=== PATIENT | female | born 1950 | race African-American/Black ===

== ENCOUNTER 2018-05-20 13:28 | Emergency (ER) | payer MEDICARE, MEDICAID ==
--- NOTE | 2018-05-20 14:22 | ER Document Report ---
ED Medical Screen (RME) - General Chief Complaint: High Blood Pressure Stated Complaint: BLOOD PRESSURE ISSUES Time Seen by Provider: 05/20/18 14:08 Notes: RAPID MEDICAL EVALUATION DISCLOSURE I have seen this patient as part of a Rapid Medical Evaluation and, if applicable, placed any initially appropriate orders. The patient will be seen and fully evaluated, including a full history and physical exam, by a provider ( in Main ED or Fast Track) when a room becomes available. 67-year-old female PMH hypertension here with complaints of bilateral arm pain headache chest pain shortness of breath that started 2 days ago. She states that she has the symptoms where her blood pressure gets really high. She does not know what her baseline blood pressures normally run. She has not missed any doses of her blood pressure medication. She has not had any changes in the dosing of her blood pressure medications recently. EXAM CTAB RRR TRAVEL OUTSIDE OF THE [place] IN LAST 30 DAYS: No - Related Data Allergies/Adverse Reactions: No Known Allergies Allergy (Verified 05/20/18 13:29) Past Medical History - Social History Chew tobacco use (# tins/day): Yes - dip Frequency of alcohol use: Social Drug Abuse: None - Past Medical History Cardiac Medical History: Reports: Hx Hypertension Renal/ Medical History: Denies: Hx Peritoneal Dialysis Musculoskeltal Medical History: Reports Hx Arthritis Past Surgical History: Reports: Hx Abdominal Surgery - fibroid tumor in stomach , Hx Hysterectomy - Immunizations Hx Diphtheria, Pertussis, Tetanus Vaccination: Yes Physical Exam - Vital signs Vitals: Temp Pulse Resp BP Pulse Ox 98.5 F 55 L 16 182/73 H 95 05/20/18 13:39 05/20/18 13:39 05/20/18 13:39 05/20/18 13:39 05/20/18 13:39 Course - Vital Signs Vital signs: Temp Pulse Resp BP Pulse Ox 98.5 F 55 L 16 182/73 H 95 05/20/18 13:39 05/20/18 13:39 05/20/18 13:39 05/20/18 13:39 05/20/18 13:39 Doctor's Discharge - Discharge Referrals: HEATHER MURRAY PA-C [Primary Care Provider] - Follow up as needed
[2018-05-20 14:59] LABS: ABSOLUTE EOSINOPHILS # (AUTO) 0.1 10^3/uL (0.0-0.6); ABSOLUTE LYMPHOCYTES (AUTO) 1.9 10^3/uL (0.5-4.7); ABSOLUTE MONOCYTES (AUTO) 0.7 10^3/uL (0.1-1.4); ABSOLUTE NEUT (AUTO) 6.7 10^3/uL (1.7-8.2); BASOPHILS % (AUTO) 0.5 % (0-2); EOSINOPHILS % (AUTO) 1.4 % (0-6); HEMOGLOBIN 13.5 g/dL (12.0-15.5); LYMPHOCYTES % (AUTO) 20.2 % (13-45); MEAN CORPUSCULAR HEMOGLOBIN 30.1 pg (27.0-33.4); MEAN CORPUSCULAR HGB CONC 33.8 g/dL (32.0-36.0); MEAN CORPUSCULAR VOLUME 89 fl (80-97); MONOCYTES % (AUTO) 7.4 % (3-13); PLATELET COUNT 269 10^3/uL (150-450); RED BLOOD COUNT 4.49 10^6/uL (3.72-5.28); RED CELL DISTRIBUTION WIDTH 14.3 % (11.5-14.0); SEGMENTED NEUTROPHILS % (AUTO) 70.5 % (42-78); TOTAL CELLS COUNTED % (AUTO) 100 %; WHITE BLOOD COUNT 9.5 10^3/uL (4.0-10.5)
--- NOTE | 2018-05-20 15:07 | RADIOLOGY REPORT (SQ) ---
EXAM DESCRIPTION: CHEST 2 VIEWS COMPLETED DATE/TIME: 05/20/2018 2:53 pm REASON FOR STUDY: CP SOB COMPARISON: AP chest 12/24/2011 EXAM PARAMETERS: NUMBER OF VIEWS: two views TECHNIQUE: Digital Frontal and Lateral radiographic views of the chest acquired. RADIATION DOSE: NA LIMITATIONS: none FINDINGS: LUNGS AND PLEURA: No opacities, masses or pneumothorax. No pleural effusion. MEDIASTINUM AND HILAR STRUCTURES: No masses or contour abnormalities. HEART AND VASCULAR STRUCTURES: Stable mild cardiomegaly BONES: No acute findings. HARDWARE: None in the chest. OTHER: No other significant finding. IMPRESSION: NO ACUTE RADIOGRAPHIC FINDING IN THE CHEST. TECHNICAL DOCUMENTATION: JOB ID: [id number] [employer]- All Rights Reserved Reading location - IP/workstation name: [email or web address]
[2018-05-20 15:16] LABS: ALANINE AMINOTRANSFERASE 19 U/L (9-52); ALBUMIN 4.3 g/dL (3.5-5.0); ALKALINE PHOSPHATASE 89 U/L (38-126); ANION GAP 13 (5-19); ASPARTATE AMINO TRANSFERASE 23 U/L (14-36); BILIRUBIN,DIRECT 0.7 mg/dL (0.0-0.4); BLOOD UREA NITROGEN 12 mg/dL (7-20); CALCIUM 9.9 mg/dL (8.4-10.2); CARBON DIOXIDE 30 mmol/L (22-30); CHLORIDE 103 mmol/L (98-107); GLUCOSE 94 mg/dL (75-110); POTASSIUM 3.8 mmol/L (3.6-5.0); SODIUM 145.5 mmol/L (137-145); TOTAL PROTEIN 7.3 g/dL (6.3-8.2)
--- NOTE | 2018-05-20 16:29 | ER Document Report ---
ED Blood Pressure Problem - General Mode of Arrival: Ambulatory Information source: Patient TRAVEL OUTSIDE OF THE [place] IN LAST 30 DAYS: No <ZITA GARCIA - Last Filed: 05/20/18 16:33> <ALEXANDRIA MOTT - Last Filed: 05/20/18 21:35> - General Chief Complaint: High Blood Pressure Stated Complaint: BLOOD PRESSURE ISSUES Time Seen by Provider: 05/20/18 14:08 Notes: 67 y.o female with gout, arthritis and HTN presents to the ED with high blood pressure at home and a NICHOLSON to the top of her head since Saturday05/17/18. Pt also complains of CP and bilateral arm pain after sleeping, both of which have been present for the past 2 days. Pt reports that she has been taking her BP medication as prescribed without missing any days nor has she had any recent changes in her medication dosage, but she states that these sx are similar to when she has had high blood pressure. (ZITA GARCIA) - Related Data Allergies/Adverse Reactions: No Known Allergies Allergy (Verified 05/20/18 13:29) Past Medical History - General Information source: Patient - Social History Smoking Status: Never Smoker Chew tobacco use (# tins/day): Yes - dip Frequency of alcohol use: Social Drug Abuse: None Family History: Other - Patient does not know her family history as she is adopted Patient has suicidal ideation: No Patient has homicidal ideation: No - Past Medical History Cardiac Medical History: Reports: Hx Hypertension Renal/ Medical History: Denies: Hx Peritoneal Dialysis Musculoskeltal Medical History: Reports Hx Arthritis, Reports Hx Gout Past Surgical History: Reports: Hx Abdominal Surgery - fibroid tumor in stomach , Hx Hysterectomy - Immunizations Hx Diphtheria, Pertussis, Tetanus Vaccination: Yes <ZITA GARCIA - Last Filed: 05/20/18 16:33> Review of Systems - Review of Systems Constitutional: No symptoms reported EENT: No symptoms reported Cardiovascular: See HPI, Chest pain Respiratory: No symptoms reported Gastrointestinal: No symptoms reported Genitourinary: No symptoms reported Female Genitourinary: No symptoms reported Musculoskeletal: See HPI, Other - Bilateral upper extremity pain Skin: No symptoms reported Hematologic/Lymphatic: No symptoms reported Neurological/Psychological: See HPI, Headaches -: Yes All other systems reviewed and negative <ZITA GARCIA - Last Filed: 05/20/18 16:33> - Vital signs Vitals: Temp Pulse Resp BP Pulse Ox 98.5 F 55 L 16 182/73 H 95 05/20/18 13:39 05/20/18 13:39 05/20/18 13:39 05/20/18 13:39 05/20/18 13:39 - Notes Notes: Physical Exam: General: Alert, appears well. HEENT: Normocephalic. Atraumatic. PERRL. Extraocular movements intact. Oropharynx clear. Neck: Supple. Cervical muscles are tender to palpation. Respiratory: No respiratory distress. Clear and equal breath sounds bilaterally. Cardiovascular: Regular rate and rhythm. Chest wall tenderness to palpation. Abdominal: Normal Inspection. Non-tender. No distension. Normal Bowel Sounds. Back: Non-tender. No deformity or step off. Extremities: Moves all four extremities. Upper extremities: Trapezium tender to palpation. Normal ROM. Lower extremities: Normal inspection. No edema. Normal ROM. Neurological: Normal cognition. AAOx3. Normal speech. Psychological: Normal affect. Normal Mood. Skin: Warm. Dry. Normal color. (ZITA GARCIA) Course - Laboratory Result Diagrams: 05/20/18 14:38 05/20/18 14:38 <ZITA GARCIA - Last Filed: 05/20/18 16:33> - Laboratory Result Diagrams: 05/20/18 14:38 05/20/18 14:38 <ALEXANDRIA MOTT - Last Filed: 05/20/18 21:35> - Re-evaluation Re-evalutation: 05/20/18 21:26 The blood pressure went over 200 systolic. Patient was given 20 mg hydralazine IV. Blood pressure did come down for a short while, and then began climbing back up and is most recently about 187 systolic. Patient does admit that she really does not check her blood pressure at home, until today when she is having her chest discomfort. The patient's EKG does not show acute changes, serial troponins are undetectable. The patient's chest pain is reproducible on exam. She will be given an oral dose of hydralazine 50 mg and discharged home with antibiotics for her right otitis media. She will be encouraged to follow with her primary care provider tomorrow to discuss better blood pressure management and further evaluation of her chest discomfort (ALEXANDRIA MOTT) - Vital Signs Vital signs: Temp Pulse Resp BP Pulse Ox 98.5 F 55 L 23 H 150/71 H 100 05/20/18 13:39 05/20/18 13:39 05/20/18 20:17 05/20/18 20:17 05/20/18 20:17 - Laboratory Laboratory results interpreted by me: 05/20/18 05/20/18 14:38 14:38 RDW 14.3 H Sodium 145.5 H Direct Bilirubin 0.7 H Discharge <ZITA GARCIA - Last Filed: 05/20/18 16:33> <ALEXANDRIA MOTT - Last Filed: 05/20/18 21:35> - Discharge Clinical Impression: Poorly-controlled hypertension, Chest wall pain Right otitis media Qualifiers: Otitis media type: unspecified Qualified Code(s): H66.91 - Otitis media, unspecified, right ear Headache Qualifiers: Headache type: tension-type Headache chronicity pattern: acute headache Intractability: not intractable Qualified Code(s): G44.209 - Tension-type headache, unspecified, not intractable Condition: Stable Disposition: HOME, SELF-CARE Additional Instructions: Take medications as prescribed for your right ear infection. Take Tylenol and ibuprofen for your headaches and chest wall pain. Be sure not to miss any doses of your blood pressure medication. Check your blood pressure 3-4 times daily and keep a log of the times and the pressures. Follow-up with your primary care provider in 1-2 days to review your blood pressures and adjust medication if needed. RETURN TO THE EMERGENCY ROOM IF ANY NEW OR WORSENING SYMPTOMS. Prescriptions: Amoxicillin Trihydrate [Amoxil 500 mg Capsule] 500 mg PO TID #30 cap Referrals: HEATHER MURRAY PA-C [Primary Care Provider] - Follow up as needed Scribe Attestation: 05/20/18 16:54 I personally performed the services described in the documentation, reviewed and edited the documentation which was dictated to the scribe in my presence, and it accurately records my words and actions. (ALEXANDRIA MOTT) Scribe Documentation - Scribe Written by Cris:: Cris Shi 05/20/18 [id number] acting as scribe for :: Hemalatha <ZITA GARCIA - Last Filed: 05/20/18 16:33>
[2018-05-20] MEDS ORDERED: HYDRALAZINE HCL INJ/PF 20 MG/1 ML SDV IV ONE (18:20)
--- NOTE | 2018-05-20 19:44 | EKG REPORT ---
SEVERITY:- ABNORMAL ECG - SINUS RHYTHM ATRIAL PREMATURE COMPLEX LEFT VENTRICULAR HYPERTROPHY BORDERLINE T ABNORMALITIES, INFERIOR LEADS BORDERLINE PROLONGED QT INTERVAL : Confirmed by: Deborah Radford MD 20-May-2018 19:43:28
[2018-05-20] MEDS ORDERED: HYDRALAZINE HCL 50 MG TABLET PO ONE (21:28)
[2018-05-20] MEDS ORDERED: AMOXICILLIN TRIHYDRATE 500 MG CAPSULE PO ONE (21:36)
[2018-05-20 22:42] VITALS: BP 149/70
== END 2018-05-20 22:00 | disposition home or self-care (01) ==
LOC: ER 13:28
DX: I10 Essential (primary) hypertension (principal); R07.9 Chest pain, unspecified; R51 Headache; Z90.710 Acquired absence of both cervix and uterus
CPT/HCPCS: 93005; 99284; 96374; 36415; 85025; 80053; 84484; 71046; 93010; A9270 ×2; J0360

== ENCOUNTER 2018-12-29 08:50 | Day surgery (SDC) | payer MEDICARE, MEDICAID ==
[~2018-12-29 08:50] MED LIST: PROPOFOL INJ 200 MG/20 ML VIAL IV ONE
[2018-12-29 10:43] VITALS: BP 184/96
--- NOTE | 2018-12-29 13:03 | Operative Report ---
Operative Report DATE OF SURGERY: 12/29/18 Operative Report: The risks, benefits and alternatives of the procedure including the risk of bleeding, perforation requiring surgery have been explained to the patient in detail and informed consent has been obtained. The patient is brought back to the endoscopy suite and placed in a left, lateral decubital position. Timeout was called. Propofol medication is administered. A rectal examination is done which did not reveal any masses, tears or fissures. An Olympus videoscope was introduced into the patient's rectum. The scope was then carefully advanced all the way to the cecum. The cecum was identified by the usual anatomical landmarks including the ileocecal valve as well as the appendiceal office. Photodocumentation is obtained. The scope was then sequentially pulled back via the various segments of the colon including the ascending colon, hepatic flexu re, transverse colon, splenic flexure, descending colon and finally into the rectosigmoid portions of the colon. Retroflexion maneuver was performed. PREOPERATIVE DIAGNOSIS: Colorectal cancer screening POSTOPERATIVE DIAGNOSIS: Cecal polyp that was removed via snare polypectomy. Rectal polyp that was removed via snare polypectomy. Diverticulosis without any evidence of diverticulitis. Internal hemorrhoids OPERATION: Colonoscopy with snare polypectomy SURGEON: DEANDRA BUSH ANESTHESIA: LMAC TISSUE REMOVED OR ALTERED: As noted above. COMPLICATIONS: None. ESTIMATED BLOOD LOSS: None. INTRAOPERATIVE FINDINGS: As noted above. PROCEDURE: Patient tolerated procedure well. No immediate postprocedure complications are noted. Patient discharged in good condition. Discharge date 12/29/2018. Discharge diet: Regular. Discharge activity: Regular. 2-3-week follow-up to discuss findings. Patient is instructed to call the office or proceed to the emergency room should there be any further problems or questions. 3-5-year surveillance colonoscopy.
== END 2018-12-29 10:40 | disposition home or self-care (01) ==
LOC: END 08:50
PROVIDERS: ATTEND Internal Medicine Gastroenterology
DX: Z12.11 Encounter for screening for malignant neoplasm of colon (principal); K57.30 Diverticulosis of large intestine without perforation or abscess without bleeding; D12.8 Benign neoplasm of rectum; D12.0 Benign neoplasm of cecum; K64.8 Other hemorrhoids; I10 Essential (primary) hypertension; Z79.899 Other long term (current) drug therapy
CPT/HCPCS: 45385; 88305 ×2; J2704; 811

== ENCOUNTER 2019-03-31 09:08 | Emergency (ER) | payer MEDICARE, MEDICAID ==
[2019-03-31] MEDS ORDERED: ASPIRIN 81 MG TABLET, CHEWABLE PO ONE (09:34)
--- NOTE | 2019-03-31 09:37 | ER Document Report ---
ED Medical Screen (RME) - General Chief Complaint: Chest Pain Stated Complaint: CHEST PAIN Time Seen by Provider: 03/31/19 09:30 Primary Care Provider: HEATHER MURRAY PA-C [Primary Care Provider] - Follow up as needed Mode of Arrival: Wheelchair Information source: Patient Notes: Patient presents emergency department with complaints of right arm pain hurts more when she moves it and left-sided chest pain feels like a knife that comes and goes. Also reports nausea. Reports symptoms since Saturday. Denies history of cardiac disease. Reports history of high blood pressure restless legs. EKG sinus rhythm I have greeted and performed a rapid initial assessment of this patient. A comprehensive ED assessment and evaluation of the patient, analysis of test results and completion of the medical decision making process will be conducted by additional ED providers. Dictation of this chart was performed using voice recognition software; therefore, there may be some unintended grammatical errors. TRAVEL OUTSIDE OF THE [place] IN LAST 30 DAYS: No - Related Data Allergies/Adverse Reactions: No Known Allergies Allergy (Verified 03/31/19 09:09) Past Medical History - Social History Chew tobacco use (# tins/day): Yes - Past Medical History Cardiac Medical History: Reports: Hx Hypertension Denies: Hx Coronary Artery Disease, Hx Heart Attack Pulmonary Medical History: Denies: Hx Asthma, Hx Bronchitis, Hx COPD, Hx Pneumonia Neurological Medical History: Denies: Hx Cerebrovascular Accident, Hx Seizures Renal/ Medical History: Denies: Hx Peritoneal Dialysis Musculoskeltal Medical History: Reports Hx Arthritis, Reports Hx Gout Past Surgical History: Reports: Hx Abdominal Surgery - fibroid tumor in stomach, Hx Hysterectomy - Immunizations Hx Diphtheria, Pertussis, Tetanus Vaccination: Yes Influenza Administration Date for 08/2017 - 01/2018 Season: 08/25/18 Physical Exam - Vital signs Vitals: Temp Pulse Resp BP Pulse Ox 97.8 F 54 L 18 153/71 H 97 03/31/19 09:23 03/31/19 09:23 03/31/19 09:23 03/31/19 09:23 03/31/19 09:23 Course - Vital Signs Vital signs: Temp Pulse Resp BP Pulse Ox 97.8 F 54 L 18 153/71 H 97 03/31/19 09:23 03/31/19 09:23 03/31/19 09:23 03/31/19 09:23 03/31/19 09:23 Doctor's Discharge - Discharge Referrals: HEATHER MURRAY PA-C [Primary Care Provider] - Follow up as needed
[2019-03-31 10:11] LABS: ABSOLUTE BASOPHILS # (AUTO) 0.1 10^3/uL (0.0-0.2); ABSOLUTE EOSINOPHILS # (AUTO) 0.2 10^3/uL (0.0-0.6); ABSOLUTE LYMPHOCYTES (AUTO) 1.3 10^3/uL (0.5-4.7); ABSOLUTE MONOCYTES (AUTO) 0.4 10^3/uL (0.1-1.4); ABSOLUTE NEUT (AUTO) 4.5 10^3/uL (1.7-8.2); BASOPHILS % (AUTO) 0.8 % (0-2); EOSINOPHILS % (AUTO) 2.5 % (0-6); HEMOGLOBIN 13.3 g/dL (12.0-15.5); LYMPHOCYTES % (AUTO) 20.4 % (13-45); MEAN CORPUSCULAR HEMOGLOBIN 29.8 pg (27.0-33.4); MEAN CORPUSCULAR HGB CONC 34.1 g/dL (32.0-36.0); MEAN CORPUSCULAR VOLUME 88 fl (80-97); MONOCYTES % (AUTO) 6.7 % (3-13); PLATELET COUNT 241 10^3/uL (150-450); RED BLOOD COUNT 4.46 10^6/uL (3.72-5.28); RED CELL DISTRIBUTION WIDTH 14.5 % (11.5-14.0); SEGMENTED NEUTROPHILS % (AUTO) 69.6 % (42-78); TOTAL CELLS COUNTED % (AUTO) 100 %; WHITE BLOOD COUNT 6.5 10^3/uL (4.0-10.5)
[2019-03-31 10:33] LABS: ALANINE AMINOTRANSFERASE 16 U/L (9-52); ALBUMIN 4.1 g/dL (3.5-5.0); ALKALINE PHOSPHATASE 89 U/L (38-126); ANION GAP 10 (5-19); ASPARTATE AMINO TRANSFERASE 16 U/L (14-36); BILIRUBIN,DIRECT 0.3 mg/dL (0.0-0.4); BILIRUBIN,TOTAL 0.9 mg/dL (0.2-1.3); BLOOD UREA NITROGEN 13 mg/dL (7-20); CALCIUM 9.7 mg/dL (8.4-10.2); CARBON DIOXIDE 31 mmol/L (22-30); CHLORIDE 104 mmol/L (98-107); CREATINE KINASE 84 U/L (30-135); GLUCOSE 100 mg/dL (75-110); POTASSIUM 4.5 mmol/L (3.6-5.0); TOTAL PROTEIN 7.4 g/dL (6.3-8.2)
--- NOTE | 2019-03-31 10:34 | RADIOLOGY REPORT (SQ) ---
EXAM DESCRIPTION: CHEST 2 VIEWS COMPLETED DATE/TIME: 03/31/2019 10:18 am REASON FOR STUDY: chest pain COMPARISON: 05/20/2018 EXAM PARAMETERS: NUMBER OF VIEWS: two views TECHNIQUE: Digital Frontal and Lateral radiographic views of the chest acquired. RADIATION DOSE: NA LIMITATIONS: none FINDINGS: LUNGS AND PLEURA: No opacities, masses or pneumothorax. No pleural effusion. Small areas of sharpnel overlying the anterior left mid chest wall and the base of the neck slightly to the left of the midline. MEDIASTINUM AND HILAR STRUCTURES: No masses or contour abnormalities. HEART AND VASCULAR STRUCTURES: Stable mild cardiomegaly. No evidence for failure. BONES: No acute findings. HARDWARE: None in the chest. OTHER: No other significant finding. IMPRESSION: 1. NO ACUTE RADIOGRAPHIC FINDING IN THE CHEST. TECHNICAL DOCUMENTATION: JOB ID: [id number] [employer]- All Rights Reserved Reading location - IP/workstation name: [email or web address]
[2019-03-31 10:43] LABS: CREATINE KINASE MB 0.36 ng/mL (<4.55)
[2019-03-31 10:48] LABS: TROPONIN I < 0.012 ng/mL
[2019-03-31] MEDS ORDERED: HYDRALAZINE HCL INJ/PF 20 MG/1 ML SDV IV ONE (12:23)
[2019-03-31] MEDS ORDERED: NORMAL SALINE 1000 ML 500 ML IV ONE (12:24)
--- NOTE | 2019-03-31 13:44 | ER Document Report ---
Entered by ROHINI MURRIETA SCRIBE 03/31/19 1027 Acting as scribe for:ALEXANDRIA MOTT MD ED General - General Chief Complaint: Chest Pain Stated Complaint: CHEST PAIN Time Seen by Provider: 03/31/19 09:30 Primary Care Provider: HEATHER MURRAY PA-C [Primary Care Provider] - Follow up as needed Mode of Arrival: Wheelchair Information source: Patient Notes: Patient is a 68 year old female with HTN, arthritis, gout presents to the emergency department complaining of right shoulder pain and chest pain onset 2 days ago. Patient states she does not currently have any chest pain further stating she only had chest pain 2 days ago. She states her right shoulder feels "stiff" and reports recently "shaking out my rugs". She states she presented to the emergency department because her daughter instructed her to do so. She denies any other focal symptoms. Patient normally takes Lisinopril and Amlodipine every morning but states she did not take them this morning. TRAVEL OUTSIDE OF THE [place] IN LAST 30 DAYS: No - Related Data Allergies/Adverse Reactions: No Known Allergies Allergy (Verified 03/31/19 09:09) Past Medical History - General Information source: Patient - Social History Smoking Status: Unknown if Ever Smoked Chew tobacco use (# tins/day): Yes Family History: Other - Patient does not know her family history as she is adopted Patient has suicidal ideation: No Patient has homicidal ideation: No - Past Medical History Cardiac Medical History: Reports: Hx Hypertension Musculoskeletal Medical History: Reports Hx Arthritis, Reports Hx Gout Past Surgical History: Reports: Hx Abdominal Surgery - fibroid tumor in stomach, Hx Hysterectomy - Immunizations Hx Diphtheria, Pertussis, Tetanus Vaccination: Yes Review of Systems - Review of Systems Constitutional: No symptoms reported EENT: No symptoms reported Cardiovascular: See HPI, Chest pain Respiratory: No symptoms reported Gastrointestinal: No symptoms reported Genitourinary: No symptoms reported Female Genitourinary: No symptoms reported Musculoskeletal: See HPI Skin: No symptoms reported Hematologic/Lymphatic: No symptoms reported Neurological/Psychological: No symptoms reported -: Yes All other systems reviewed and negative Physical Exam - Vital signs Vitals: Temp Pulse Resp BP Pulse Ox 97.8 F 54 L 18 153/71 H 97 03/31/19 09:23 03/31/19 09:23 03/31/19 09:23 03/31/19 09:23 03/31/19 09:23 - Notes Notes: GENERAL: Alert, interacts well. No acute distress. HEAD: Normocephalic, atraumatic. EYES: Pupils equal, round, and reactive to light. Extraocular movements intact. ENT: Oral mucosa moist, tongue midline. NECK: Full range of motion. Supple. Trachea midline. LUNGS: Clear to auscultation bilaterally, no wheezes, rales, or rhonchi. No respiratory distress. No chest wall tenderness to palpation. HEART: Regular rate and rhythm. No murmurs, gallops, or rubs. ABDOMEN: Soft, non-tender. Non-distended. Bowel sounds present in all 4 quadrants. No guarding, rigidity, or rebound. EXTREMITIES: Moves all 4 extremities spontaneously. Right shoulder is not tender to palpation although passive manipulation causes reproducible pain. No edema, radial and dorsalis pedis pulses 2/4 bilaterally. No cyanosis. NEUROLOGICAL: Alert and oriented x3. Normal speech. PSYCH: Normal affect, normal mood. SKIN: Warm, dry, normal turgor. No rashes or lesions noted. Course - Re-evaluation Re-evalutation: 03/31/19 10:22 Patient reports she has her HTN medications with her. Instructed to take them while she is here. 03/31/19 13:51 At this time the patient's systolic pressure is still just over 150 despite her taking her regular lisinopril 40 mg and amlodipine 5 mg, and receiving hydralazine 20 mg IV. We will give her an additional hydralazine 50 mg p.o., will get a repeat troponin, and we will see where her pressure goes. - Vital Signs Vital signs: Temp Pulse Resp BP Pulse Ox 97.8 F 54 L 23 H 123/45 L 98 03/31/19 09:23 03/31/19 09:23 03/31/19 14:04 03/31/19 14:04 03/31/19 14:04 - Laboratory Result Diagrams: 03/31/19 09:53 03/31/19 09:53 Laboratory results interpreted by me: 03/31/19 03/31/19 09:53 09:53 RDW 14.5 H Carbon Dioxide 31 H Est GFR ( Amer) 55 L Est GFR (Non-Af Amer) 45 L Discharge - Discharge Clinical Impression: Renal insufficiency, mild, Poorly-controlled hypertension Chest pain Qualifiers: Chest pain type: unspecified Qualified Code(s): R07.9 - Chest pain, unspecified Shoulder pain, right Qualifiers: Chronicity: acute Qualified Code(s): M25.511 - Pain in right shoulder Condition: Stable Disposition: HOME, SELF-CARE Additional Instructions: Chest Pain of Unclear Cause: The exact cause of your chest pain isn't clear. Fortunately, there is no evidence of a dangerous medical condition. Further testing may be required to find the source of the pain. Most often, we find that this pain is coming from the chest wall -- the muscles or rib joints in the chest. But chest pain can come from the lung and lung lining, the esophagus, the heart valves or heart lining, and even the stomach or gallbladder. Rest. Eat lightly until the pain is gone. We may prescribe medicine for pain and inflammation. You should call the physician immediately if the pain radiates to the shoulder, jaw or arms; if you start to run a fever or develop a cough; or if you develop shortness of breath, or other new or alarming symptoms. Follow-up with your doctor tomorrow for recheck of your blood pressure, and further evaluation of the chest pain you have been having. Be sure to drink plenty of water during the day. Be sure not to miss your blood pressure medications in the morning when you are supposed to take them. RETURN TO THE EMERGENCY ROOM IF ANY NEW OR WORSENING SYMPTOMS. Referrals: HEATHER MURRAY PA-C [Primary Care Provider] - Follow up tomorrow Scribe Attestation: 03/31/19 13:57 I personally performed the services described in the documentation, reviewed and edited the documentation which was dictated to the scribe in my presence, and it accurately records my words and actions. I personally performed the services described in the documentation, reviewed and edited the documentation which was dictated to the scribe in my presence, and it accurately records my words and actions.
[2019-03-31] MEDS ORDERED: HYDRALAZINE HCL 50 MG TABLET PO ONE (13:49)
[2019-03-31 14:30] LABS: APPEARANCE,URINE SLIGHTLY-CLOUDY; BILIRUBIN,URINE NEGATIVE (NEGATIVE); COLOR,URINE YELLOW; GLUCOSE, URINE NEGATIVE (NEGATIVE); KETONES,URINE NEGATIVE (NEGATIVE); LEUKOCYTE ESTERASE,URINE NEGATIVE (NEGATIVE); NITRITE,URINE NEGATIVE (NEGATIVE); PROTEIN,URINE NEGATIVE (NEGATIVE); UROBILINOGEN,URINE NEGATIVE mg/dL (<2.0)
[2019-03-31 15:01] VITALS: BP 145/112
--- NOTE | 2019-03-31 22:33 | EKG REPORT ---
SEVERITY:- ABNORMAL ECG - SINUS RHYTHM LEFT VENTRICULAR HYPERTROPHY CONSIDER ANTERIOR INFARCT BORDERLINE T ABNORMALITIES, INFERIOR LEADS : Confirmed by: Deborah Radford MD 31-Mar-2019 22:32:49
== END 2019-03-31 15:00 | disposition home or self-care (01) ==
LOC: ER 09:08
DX: N28.9 Disorder of kidney and ureter, unspecified (principal); R07.9 Chest pain, unspecified; I10 Essential (primary) hypertension; M25.511 Pain in right shoulder
CPT/HCPCS: 93005; 99284; 96361; 96374; 36415; 82553; 82550; 83690; 85025; 80053; 81001; 84484; 71046; 93010; A9270 ×2; J0360; J7030

== ENCOUNTER 2019-06-12 13:14 | Emergency (ER) | payer MEDICARE, MEDICAID ==
[2019-06-12 13:45] VITALS: BP 148/78
[2019-06-12] MEDS ORDERED: MORPHINE SULFATE 10 MG/ML INJ IM ONE ×2 (14:54→17:35)
[2019-06-12] MEDS ORDERED: ONDANSETRON 4 MG TAB.RAPDIS PO ONE (14:55)
--- NOTE | 2019-06-12 14:58 | ER Document Report ---
ED General - General Chief Complaint: Hip Pain Stated Complaint: LEFT HIP PAIN Time Seen by Provider: 06/12/19 14:12 Primary Care Provider: HEATHER MURRAY PA-C [Primary Care Provider] - Follow up as needed Mode of Arrival: Medic Information source: Patient, Emergency Med Personnel, [facility] Records Notes: At this time 68-year-old female with hypertension, arthritis, depression presents via EMS from home with complaint of left hip pain that started 1 day prior to arrival. Patient states that she stood up to walk into the kitchen when she felt a sharp pain in her left hip. Patient does report a fall from a water bed approximately 3 feet last weekend. She states that she landed on her buttocks. She denies any head injury, loss of consciousness. Patient also reports another fall 1 month ago where she fell forward on an outstretched hand when chasing after a child that was running into the road. Patient has had prior similar symptoms. She denies any recent illness, nausea, vomiting, chest pain, shortness of breath, leg weakness, saddle anesthesia, urinary retention, fecal incontinence. TRAVEL OUTSIDE OF THE [place] IN LAST 30 DAYS: No - HPI Onset: Yesterday Onset/Duration: Gradual, Worse Quality of pain: Throbbing Severity: Moderate Pain Level: 2 Associated symptoms: Body/muscle aches. denies: Chest pain, Diarrhea, Fever, Nausea, Vomiting, Shortness of breath Exacerbated by: Movement, Walking Relieved by: Denies Similar symptoms previously: Yes Recently seen / treated by doctor: No - Related Data Allergies/Adverse Reactions: No Known Allergies Allergy (Verified 03/31/19 09:09) Past Medical History - General Information source: Patient, Emergency Med Personnel, [facility] Records - Social History Smoking Status: Never Smoker Chew tobacco use (# tins/day): Yes - 1 tin per day Frequency of alcohol use: Occasional Drug Abuse: None Lives with: Family Family History: Other - Patient does not know her family history as she is adopted Patient has suicidal ideation: No Patient has homicidal ideation: No - Past Medical History Cardiac Medical History: Reports: Hx Hypertension Denies: Hx Coronary Artery Disease, Hx Heart Attack Pulmonary Medical History: Denies: Hx Asthma, Hx Bronchitis, Hx COPD, Hx Pneumonia Neurological Medical History: Denies: Hx Cerebrovascular Accident, Hx Seizures Renal/ Medical History: Denies: Hx Peritoneal Dialysis Musculoskeletal Medical History: Reports Hx Arthritis, Reports Hx Gout Past Surgical History: Reports: Hx Abdominal Surgery - fibroid tumor in stomach, Hx Hysterectomy - Immunizations Hx Diphtheria, Pertussis, Tetanus Vaccination: Yes Review of Systems - Review of Systems Notes: REVIEW OF SYSTEMS: CONSTITUTIONAL : Denies fever, chills, or sweats. Denies recent illness. Denies weight loss, recent hospitalizations. EENT: Denies visual changes, eye pain. Denies sore throat, oral lesions, difficulty swallowing. CARDIOVASCULAR: Denies chest pain. Denies palpitations. Denies lower extremity edema. RESPIRATORY: Denies cough. Denies shortness of breath, wheezing. GASTROINTESTINAL: Denies abdominal pain or distention. Denies nausea, vomiting, or diarrhea. Denies blood in vomitus, stools, or per rectum. Denies black, tarry stools. Denies constipation. GENITOURINARY: Denies difficulty urinating, painful urination, frequency, blood in urine, or vaginal discharge. MUSCULOSKELETAL: Denies back or neck pain or stiffness. Denies joint swelling. SKIN: Denies rash, lesions or sores. HEMATOLOGIC : Denies easy bruising or bleeding. LYMPHATIC: Denies swollen glands. NEUROLOGICAL: Denies confusion or altered mental status. Denies loss of consciousness. Denies dizziness or lightheadedness. Denies headache. Denies weakness or paralysis. Denies problems difficulty with ambulation, slurred speech. Denies sensory loss, numbness, or tingling. Denies seizures. PSYCHIATRIC: Denies anxiety or stress. Denies depression, suicidal ideation, or homicidal ideation. Denies visual or auditory hallucinations. Physical Exam - Vital signs Vitals: Pulse 60 06/12/19 13:34 - Notes Notes: PHYSICAL EXAMINATION: GENERAL: Well-appearing, well-nourished and in no acute distress. HEAD: Atraumatic, normocephalic. EYES: Pupils equal round and reactive to light, extraocular movements intact, conjunctiva are normal. ENT: Nares patent, oropharynx clear without exudates. Moist mucous membranes. NECK: Normal range of motion, supple without lymphadenopathy LUNGS: Breath sounds clear to auscultation bilaterally and equal. No wheezes rales or rhonchi. HEART: Regular rate and rhythm without murmurs ABDOMEN: Soft, nontender, nondistended abdomen. No guarding, no rebound. No masses appreciated. Female : deferred Musculoskeletal: Normal range of motion, no pitting or edema. No cyanosis. Left hip tenderness not reproducible with palpation or range of motion. NEUROLOGICAL: Cranial nerves grossly intact. Normal speech, normal gait. Normal sensory, motor exams PSYCH: Normal mood, normal affect. SKIN: Warm, Dry, normal turgor, no rashes or lesions noted. Course - Re-evaluation Re-evalutation: Temp Pulse Resp BP Pulse Ox 97.8 F 35 L 148/78 H 97 06/12/19 13:41 06/12/19 13:41 06/12/19 13:41 06/12/19 13:41 Hip X-Ray 06/12/19 00:00 IMPRESSION: No definite fracture of the left hip or pelvis. There are subtle lucencies about the base of the femoral neck and greater trochanter suspicious for nondisplaced fracture. Please note that plain radiographs are insensitive for hip or pelvic fracture. Recommend MRI to more sensitively evaluate. Lower Extremity CT 06/12/19 15:40 IMPRESSION: No acute fracture left hip 06/12/19 14:58 68-year-old female presented with complaint of left hip pain that started yesterday. Vitals reviewed. Patient does not appear toxic or dehydrated. Patient has a normal physical exam. Patient's left hip pain not reproducible with palpation or range of motion. X-rays of the pelvis and hip are pending. Patient did receive 5 mg of IM morphine and Zofran. 06/12/19 16:54 Patient reevaluated and reports improvement of her pain. She is now laying on her left side which she could not do prior. CT of the lower extremity showed no acute fracture of the left hip. Patient ambulating with a cane ( baseline). Patient was evaluated and treated as appropriate for the patient's presenting symptoms and complaint, with consideration of any critical or life threatening conditions that may be associated with their obtained history and exam as noted above. All results were discussed with patient and... Patient provided the opportunity to ask questions, and express concerns. Patient was educated on treatments based on their presumed diagnosis as noted above. At this time we will discharge the patient with return precautions and follow-up recommendations. Verbal discharge instructions given a the bedside. Medication warnings reviewed. Patient is in agreement with this plan and has verbalized understanding of return precautions. After careful consideration I feel that that patient can be safely discharged from the emergency department, they were advised to followup with a primary care physician in 2-3 days. Dictation on this chart was performed using voice recognition software and may result in unintended grammatical, spelling, syntax or errors. - Vital Signs Vital signs: Temp Pulse Resp BP Pulse Ox 97.8 F 35 L 148/78 H 97 06/12/19 13:41 06/12/19 13:41 06/12/19 13:41 06/12/19 13:41 - Diagnostic Test Radiology reviewed: Image reviewed, Reports reviewed Discharge - Discharge Clinical Impression: Left hip pain, Arthritis Condition: Good Disposition: HOME, SELF-CARE Instructions: Arthritis ([facility]), Contusion ([facility]) Additional Instructions: You have been seen in the Emergency Department (ED) today following a fall. Your workup today did not reveal any injuries that require you to stay in the hospital. You can expect, though, to be stiff and sore for the next several days. You can take Tylenol 1000 mg every 6 hours as needed for pain. You can apply a hot pack or electric heating pad to the sore areas. You can also use topical "Aspercreme with lidocaine" to sore areas as needed. Please follow up with your primary care doctor as soon as possible regarding today's ED visit and your recent fall. Call your doctor or return to the ED if you develop a sudden or severe headache, confusion, slurred speech, facial droop, weakness or numbness in any arm or leg, extreme fatigue, vomiting more than two times, severe abdominal pain, or other symptoms that concern you. Prescriptions: Hydrocodone/Acetaminophen [[place] 5-325 mg Tablet] 1 tab PO Q6H #10 tablet Forms: Elevated Blood Pressure, Parent Work Note Referrals: HEATHER MURRAY PA-C [Primary Care Provider] - Follow up as needed
--- NOTE | 2019-06-12 15:25 | RADIOLOGY REPORT (SQ) ---
EXAM DESCRIPTION: HIP LEFT AP/LATERAL COMPLETED DATE/TIME: 06/12/2019 2:50 pm REASON FOR STUDY: fall; unable to bear weight; painful COMPARISON: None. NUMBER OF VIEWS: Two views. TECHNIQUE: AP pelvis and additional frog-leg view of the left hip. LIMITATIONS: None. FINDINGS: MINERALIZATION: Normal. LEFT HIP: No displaced fracture. There are subtle lucencies about the base of the femoral neck and g reater trochanter suspicious for nondisplaced fracture. No worrisome bone lesions. RIGHT HIP: No displaced fracture. No worrisome bone lesions. PELVIS: No fracture. SOFT TISSUES: No findings. OTHER: No other significant finding. IMPRESSION: No definite fracture of the left hip or pelvis. There are subtle lucencies about the ba se of the femoral neck and greater trochanter suspicious for nondisplaced fracture. Please note that plain radiographs are insensitive for hip or pelvic fracture. Recommend MRI to more sensitively deshawn luate. TECHNICAL DOCUMENTATION: JOB ID: [id number] [email or web address]- All Rights Reserved Reading location - IP/workstation name: [email or web address]
--- NOTE | 2019-06-12 16:47 | RADIOLOGY REPORT (SQ) ---
EXAM DESCRIPTION: CT LT LOWER EXTREMITY WITHOUT COMPLETED DATE/TIME: 06/12/2019 4:37 pm REASON FOR STUDY: Concern for fracture COMPARISON: None. TECHNIQUE: CT scan of the left hip performed without intravenous or oral contrast. Images reviewed with soft tissue and bone windows. Reconstructed coronal and sagittal MPR images reviewed. All imag es stored on PACS. All CT scanners at this facility use dose modulation, iterative reconstruction, and/or weight based d osing when appropriate to reduce radiation dose to as low as reasonably achievable (ALARA). [facility]: Dose Right [facility]: CareDose [facility]: Dose Right [facility]: Teradose 4D [facility]: RingCaptcha RADIATION DOSE: 34 mGy. LIMITATIONS: Limited field of view. Limited view of the left hemipelvis and sacrum FINDINGS: Grossly normal bone density for age. Normal alignment at the left hip joint without high-grade joint space narrowing or bulky bony spurrin g. No gross left hip joint effusion or trochanteric bursa effusion. No acute fracture of the visualized left hemipelvis or proximal femur. No soft tissue air or soft tissue contusions are identified. IMPRESSION: No acute fracture left hip TECHNICAL DOCUMENTATION: JOB ID: [id number] Quality ID # [id number]: Final reports with documentation of one or more dose reduction techniques (e.g., Au tomated exposure control, adjustment of the mA and/or kV according to patient size, use of iterative reconstruction technique) 2010 [employer]- All Rights Reserved Reading location - IP/workstation name: [email or web address]
[2019-06-12] MEDS ORDERED: HYDROCODONE/ACETAMINOPHEN 5-325 MG (6 TAB/ER DISP) PO PRN (17:35)
[2019-06-12] MEDS ORDERED: KETOROLAC TROMETHAMINE 10 MG TABLET PO ONE (17:35)
== END 2019-06-12 18:45 | disposition home or self-care (01) ==
LOC: ER 13:14
DX: M25.552 Pain in left hip (principal); M19.90 Unspecified osteoarthritis, unspecified site; W06.XXXA Fall from bed, initial encounter; I10 Essential (primary) hypertension; F32.9 Major depressive disorder, single episode, unspecified; Z91.81 History of falling; Z72.0 Tobacco use
CPT/HCPCS: 99284; 96372; 73502; 73700; A9270 ×3; J2270; J3490; S0119